=== PATIENT | female | born 1995 | race Caucasian/White ===

== ENCOUNTER 2016-07-15 13:00 | Outpatient (RCR) | payer OTHER | END 2016-07-21 | disposition home or self-care (01) | LOC: M OUTALCOH 13:00 | PROVIDERS: ATTEND Psychiatry & Neurology Psychiatry | DX: F12.20 Cannabis dependence, uncomplicated (principal); F17.200 Nicotine dependence, unspecified, uncomplicated ==

== ENCOUNTER 2016-08-17 13:00 | Outpatient (RCR) | payer OTHER | END 2016-08-18 | LOC: M OUTALCOH 13:00 | PROVIDERS: ATTEND Psychiatry & Neurology Psychiatry | DX: F12.20 Cannabis dependence, uncomplicated (principal); F17.200 Nicotine dependence, unspecified, uncomplicated ==

== ENCOUNTER 2016-09-22 13:06 | Emergency (ER) | payer MEDICAID, OTHER ==
[~2016-09-22] VITALS: Ht 162.6 cm; Wt 77.1 kg
[2016-09-22 13:10] VITALS: BP 148/97
[2016-09-22] MEDS ORDERED: PROZ40CA PO (13:23)
[2016-09-22] MEDS ORDERED: HYDRPOW28 PO (13:23)
== END 2016-09-22 14:43 | disposition home or self-care (01) ==
LOC: M ED 13:57
DX: F60.9 Personality disorder, unspecified (principal); F17.210 Nicotine dependence, cigarettes, uncomplicated; Z79.899 Other long term (current) drug therapy; F41.9 Anxiety disorder, unspecified; F32.9 Major depressive disorder, single episode, unspecified; F12.10 Cannabis abuse, uncomplicated

== ENCOUNTER 2018-03-15 13:34 | Emergency (ER) | payer OTHER ==
[2018-03-15 14:20] LABS: HEMATOCRIT 44.3 % (36.0-47.0); HEMOGLOBIN 14.7 g/dl (12.0-15.5); MEAN CORPUSCULAR HGB CONC 33.2 g/dl (32.0-36.5); MEAN CORPUSCULAR VOLUME 81.3 fl (80.0-96.0); PLATELET COUNT, AUTOMATED 411 10^3/uL (150-450); RED BLOOD COUNT 5.45 10^6/uL (4.00-5.40); RED CELL DISTRIBUTION WIDTH 13.7 % (11.5-14.5); WHITE BLOOD COUNT 9.2 10^3/uL (4.0-10.0)
[2018-03-15 14:40] LABS: CONTROL LINE HCG INT CTR LINE PRESENT; HCG, SERUM QUALITATIVE NEGATIVE (NEGATIVE)
[2018-03-15 14:41] LABS: AMPHETAMINES LEVEL URINE NEGATIVE (NEGATIVE); BARBITURATES URINE NEGATIVE (NEGATIVE); BENZODIAZEPINES URINE NEGATIVE (NEGATIVE); CANNABINOIDS URINE POSITIVE (NEGATIVE); COCAINE METABOLITE URINE NEGATIVE (NEGATIVE); METHADONE URINE NEGATIVE (NEGATIVE); OPIATES URINE NEGATIVE (NEGATIVE); PHENCYCLIDINE URINE NEGATIVE (NEGATIVE)
[2018-03-15 15:11] LABS: ACETAMINOPHEN LEVEL < 2.0 UG/ML (10.0-30.0); ALBUMIN 4.4 GM/DL (3.2-5.2); ALBUMIN/GLOBULIN RATIO 1.26 (1.00-1.93); ALKALINE PHOSPHATASE 103 U/L (45-117); ALT/SGPT 45 U/L (12-78); ANION GAP 12 MEQ/L (8-16); AST/SGOT 26 U/L (7-37); BILIRUBIN,DIRECT 0.1 MG/DL (0.0-0.2); BILIRUBIN,TOTAL 0.2 MG/DL (0.2-1.0); BLOOD UREA NITROGEN 9 MG/DL (7-18); CALCIUM LEVEL 9.4 MG/DL (8.5-10.1); CARBON DIOXIDE LEVEL 23 MEQ/L (21-32); CHLORIDE LEVEL 107 MEQ/L (98-107); CREATININE FOR GFR 0.63 MG/DL (0.55-1.30); ETHYL ALCOHOL (ETHANOL) < 0.003 % (0.000-0.010); GLOMERULAR FILTRATION RATE > 60.0 (>60); GLUCOSE, FASTING 78 MG/DL (70-100); POTASSIUM SERUM 4.3 MEQ/L (3.5-5.1); SALICYLATE LEVEL 6.1 MG/DL (5.0-30.0); SODIUM LEVEL 142 MEQ/L (136-145); TOTAL PROTEIN 7.9 GM/DL (6.4-8.2)
== END 2018-03-15 20:06 | disposition home or self-care (01) ==
LOC: M ED 13:34
DX: Z60.9 Problem related to social environment, unspecified (principal); Z72.0 Tobacco use; F12.10 Cannabis abuse, uncomplicated; Z79.899 Other long term (current) drug therapy
CPT/HCPCS: 80320

== ENCOUNTER → 2018-04-04 | Outpatient (CLI) | payer MEDICAID | LOC: M OUTALCOH 08:26 | DX: F12.10 Cannabis abuse, uncomplicated (principal); F17.200 Nicotine dependence, unspecified, uncomplicated ==

== ENCOUNTER 2018-04-13 09:00 | Outpatient (RCR) | payer MEDICAID | END 2018-04-20 | LOC: M OUTALCOH 04-18 14:00 | DX: F12.20 Cannabis dependence, uncomplicated (principal); F17.200 Nicotine dependence, unspecified, uncomplicated ==

== ENCOUNTER 2018-04-25 14:01 | Outpatient (RCR) | payer MEDICAID | END 2018-05-20 | LOC: M OUTALCOH 05-02 14:00 | DX: F12.20 Cannabis dependence, uncomplicated (principal); F17.200 Nicotine dependence, unspecified, uncomplicated ==

== ENCOUNTER 2018-06-15 07:50 | Outpatient (RCR) | payer MEDICAID ==
[~2018-06-15 07:50] MED LIST: GABA-843 PO; GABA-845 PO; HYDR50TA70 PO; HYDRPOW28 PO; PRIS1TAB PO; PRIS50TA PO; PROZ40CA PO
== END 2018-06-20 ==
LOC: M OUTALCOH 07:50
PROVIDERS: ATTEND Psychiatry & Neurology Psychiatry
DX: F17.200 Nicotine dependence, unspecified, uncomplicated (principal); F12.20 Cannabis dependence, uncomplicated

== ENCOUNTER → 2018-07-21 | Outpatient (RCR) | payer MEDICAID | LOC: M OUTALCOH 06-29 10:05 | PROVIDERS: ATTEND Psychiatry & Neurology Psychiatry | DX: F12.20 Cannabis dependence, uncomplicated (principal) ==

== ENCOUNTER → 2018-08-18 | Outpatient (RCR) | payer MEDICAID | LOC: M OUTALCOH 07-28 09:06 | PROVIDERS: ATTEND Psychiatry & Neurology Psychiatry | DX: F12.20 Cannabis dependence, uncomplicated (principal) ==

== ENCOUNTER 2018-09-16 09:00 | Outpatient (RCR) | payer MEDICAID | END 2018-09-18 | LOC: M OUTALCOH 09:00 | PROVIDERS: ATTEND Psychiatry & Neurology Psychiatry | DX: F12.20 Cannabis dependence, uncomplicated (principal) ==

== ENCOUNTER → 2018-09-29 | Outpatient (REF) | payer MEDICAID | LOC: M LAB REF 12:57 | PROVIDERS: ATTEND Advanced Practice Midwife | DX: Z12.4 Encounter for screening for malignant neoplasm of cervix (principal); N87.0 Mild cervical dysplasia ==

== ENCOUNTER 2018-10-17 10:20 | Outpatient (RCR) | payer MEDICAID | END 2018-10-18 | LOC: M OUTALCOH 10:20 | PROVIDERS: ATTEND Psychiatry & Neurology Psychiatry | DX: F12.20 Cannabis dependence, uncomplicated (principal); F17.200 Nicotine dependence, unspecified, uncomplicated ==

== ENCOUNTER → 2018-10-27 | Outpatient (CLI) | payer MEDICAID | LOC: M SMT 11:39 | PROVIDERS: ATTEND Advanced Practice Midwife | DX: Z34.82 Encounter for supervision of other normal pregnancy, second trimester (principal); Z3A.00 Weeks of gestation of pregnancy not specified ==

== ENCOUNTER 2018-11-07 16:00 | Outpatient (RCR) | payer MEDICAID | END 2018-11-18 | LOC: M OUTALCOH 16:00 | PROVIDERS: ATTEND Psychiatry & Neurology Psychiatry | DX: F12.20 Cannabis dependence, uncomplicated (principal); F17.200 Nicotine dependence, unspecified, uncomplicated ==

== ENCOUNTER → 2018-11-24 | Outpatient (CLI) | payer MEDICAID ==
[2018-11-24 14:31] LABS: FREE T4 0.82 NG/DL (0.76-1.46); THYROID STIMULATING HORMONE 4.25 uIU/ML (0.358-3.740)
== END ==
LOC: M SMT 11:03
PROVIDERS: ATTEND Advanced Practice Midwife
DX: O99.282 Endocrine, nutritional and metabolic diseases complicating pregnancy, second trimester (principal); O99.342 Other mental disorders complicating pregnancy, second trimester; Z3A.00 Weeks of gestation of pregnancy not specified

== ENCOUNTER → 2018-12-02 | Outpatient (CLI) | payer OTHER ==
--- NOTE | 2018-12-02 14:02 | REP ---
OBSTETRIC SONOGRAPHY: HISTORY: Supervision of for anatomy. FINDINGS: Scanning through the gravid uterus demonstrates a viable single intrauterine gestation in a breech lie. motion is observed and heart rate is recorded at 143 beats per minute. An anterior grade 0 placenta is seen without evidence of previa or abruption. Amniotic fluid is subjectively normal. Closed cervical length is 4.4 cm, measured transabdominally. No extrauterine abnormalities observed. No anomaly is seen. spine and lower extremities are less than optimally seen due to position. Similarly, suboptimal visualization of the face was achieved today. The following additional anatomic structures are identified and felt to be unremarkable: cranium, choroid plexus, cavum, cerebellum and posterior fossa, lungs, four-chamber heart with left and right ventricular outflow tract views, diaphragm, left-sided stomach, abdominal wall cord insertion, three-vessel umbilical cord, kidneys and bladder, upper extremities. Biometry Chart: BPD 3.9 cm = 17 weeks 6 days HC 15.1 cm = 18 weeks 1 day AC 12.5 cm = 18 weeks 1 day FL 2.7 cm = 18 weeks 0 days HL 2.5 cm = 17 weeks 6 days HC/AC ratio normal 1.21. Cephalic index normal 0.70. Estimated weight 224 grams, 0 pounds 7 ounces, 39th percentile for 18 weeks 2 days. IMPRESSION: Viable single intrauterine gestation 18 weeks 0 days by today's composite sonographic criteria. ANAID by today's sonography May 05, 2019. face, spine, and lower extremities are less than optimally seen today. Electronically Signed by Torres Stein MD 12/02/2018 03:12 P
== END ==
LOC: M RAD 11:33
PROVIDERS: ATTEND Advanced Practice Midwife
DX: O99.342 Other mental disorders complicating pregnancy, second trimester (principal); Z3A.18 18 weeks gestation of pregnancy

== ENCOUNTER 2018-12-12 16:00 | Outpatient (RCR) | payer MEDICAID | END 2018-12-18 | LOC: M OUTALCOH 16:00 | PROVIDERS: ATTEND Psychiatry & Neurology Psychiatry | DX: F12.20 Cannabis dependence, uncomplicated (principal); F17.200 Nicotine dependence, unspecified, uncomplicated ==

== ENCOUNTER → 2019-01-05 | Outpatient (CLI) | payer OTHER ==
--- NOTE | 2019-01-05 19:03 | REP ---
Obstetric sonography: History: Supervision of , followup anatomy. Lower extremities, face, and spine. Findings: Scanning through the gravid uterus demonstrates a viable single intrauterine gestation in a breech lie. motion is observed and heart rate is recorded at 160 beats per minute. An anterior grade 0 placenta is seen without evidence of previa or abruption. Amniotic fluid is subjectively normal. Closed cervical length viewed transabdominally is normal at 5.5 cm. No extrauterine abnormalities observed. There has been appropriate interval growth. No anomaly is seen. The following anatomic structures are identified and felt to be sonographically unremarkable today: cranium, choroid plexus, cavum, cerebellum and posterior fossa, face and profile, lungs, four-chamber heart with left and right ventricular outflow tract views, diaphragm, left-sided stomach, abdominal wall cord insertion, three-vessel umbilical cord, kidneys and bladder, upper and lower extremities. spine is still less than optimally visualized due to position. Biometry chart: BPD 5.4 cm = 22 weeks 3 days HC 21.0 cm = 23 weeks 0 days AC 20.7 cm = 25 weeks 2 days FL 4.0 cm = 23 weeks 0 days HL 4.0 cm = 24 weeks 3 days HC/AC ratio normal 1.01. Cephalic index normal 0.70. Estimated weight 662 grams, 1 pound 7 ounces, 77th percentile for 23 weeks 1 day. Impression: Viable single intrauterine gestation at 23 weeks 5 days by today's composite criteria. There has been appropriate interval growth. Expected gestational age estimate based on prior sonography is 22 weeks 6 days. ANAID by prior sonography May 05, 2019. anatomic survey is felt to be complete except for spine. Electronically Signed by Torres Stein MD 01/05/2019 07:28 P
== END ==
LOC: M RAD 17:22
PROVIDERS: ATTEND Specialist
DX: O99.282 Endocrine, nutritional and metabolic diseases complicating pregnancy, second trimester (principal)

== ENCOUNTER 2019-01-16 13:00 | Outpatient (RCR) | payer MEDICAID | END 2019-01-18 | LOC: M OUTALCOH 13:00 | PROVIDERS: ATTEND Psychiatry & Neurology Psychiatry | DX: F12.20 Cannabis dependence, uncomplicated (principal); F17.200 Nicotine dependence, unspecified, uncomplicated ==

== ENCOUNTER → 2019-02-02 | Outpatient (CLI) | payer OTHER ==
--- NOTE | 2019-02-02 18:43 | REP ---
HISTORY: Followup anatomy. COMPARISON: Prior examination failed to optimally identify the spine. Today's examination was performed specifically to identify that structure with all other structures being optimally seen on prior examinations of 12/02/2018 and 01/05/2019. Multiple ultrasonographic images of the gravid uterus show a single living intrauterine gestation in the yudith breech presentation. Doppler interrogation of the heart shows a heart rate of 149 beats per minute. The placenta is anterior and not low lying. The subjective amniotic fluid volume is within normal limits. The cervix measures 5 cm in length and is closed. Evaluation of the maternal adnexal spaces showed no abnormalities. Once again, the spine was seen suboptimally due to the lie. Doppler interrogation of the umbilical artery shows an AB ratio of 2.52. This is just below the lower limit of normal at 2.60. The calculated amniotic fluid index is 14.9 with an expected range 9.5 to 22.6. BPD 6.9 cm = 27 weeks 5 days HC 26.9 cm = 29 weeks 3 days AC 25.3 cm = 30 weeks 3 days FL 4.9 cm = 26 weeks 4 days The estimated weight is 1071 grams which is at the 95th percentile for a 27 week 1 day gestational age. IMPRESSION: Single living intrauterine gestation as described above with an estimated gestational age of 28 weeks 3 days via composite criteria and an estimated date of delivery of 04/24/2019 by today's exam. The spine was still suboptimally visualized. Followup is recommended. Electronically Signed by Payam Beck DO 02/02/2019 07:37 P
== END ==
LOC: M RAD 16:11
PROVIDERS: ATTEND Specialist
DX: Z34.82 Encounter for supervision of other normal pregnancy, second trimester (principal); Z3A.28 28 weeks gestation of pregnancy

== ENCOUNTER 2019-02-08 08:53 | Outpatient (RCR) | payer MEDICAID | END 2019-02-18 | LOC: M OUTALCOH 08:53 | PROVIDERS: ATTEND Psychiatry & Neurology Psychiatry | DX: F12.20 Cannabis dependence, uncomplicated (principal); F17.200 Nicotine dependence, unspecified, uncomplicated ==

== ENCOUNTER 2019-02-21 14:09 | Outpatient (RCR) | payer MEDICAID | END 2019-03-20 | LOC: M OUTALCOH 14:09 | PROVIDERS: ATTEND Psychiatry & Neurology Psychiatry | DX: F12.20 Cannabis dependence, uncomplicated (principal); F17.200 Nicotine dependence, unspecified, uncomplicated ==

== ENCOUNTER → 2019-03-01 | Outpatient (CLI) | payer OTHER ==
--- NOTE | 2019-03-02 07:15 | REP ---
OB ULTRASOUND: Real-time sonographic evaluation of the gravid uterus is performed. There is a single living intrauterine gestation. The estimated gestational age is 31 weeks. EDC 05/03/2019. Today's measurements indicate appropriate growth. BPD 77 mm 31 weeks 0 days, 50th percentile. HC 295 mm 32 weeks 4 days, 73rd percentile. AC 269 mm 31 weeks 0 days, 49th percentile. Femur length 61 mm 31 weeks 4 days, 50th percentile. HC/AC ratio 1.10 within normal range. Estimated weight 1738 grams, 49th percentile. Cervix is closed and measures 3.9 cm in length. heart rate 133 beats per minute. Amniotic fluid within normal limits. JANI 17.8 with a normal range of 8.8-23.8. SD ratio 2.53 with a normal range of 2.5-3.5. RI is 0.60 within normal range of 0.59-0.75. Today's measurements indicate appropriate growth. SEEN/GROSSLY UNREMARKABLE Lateral ventricles No Posterior fossa No Upper lip Yes Four-chamber heart Yes LVOT Yes RVOT Yes Stomach Yes Cord insertion No Three vessel cord Yes Kidneys Yes Bladder Yes Spine No position: Vertex. Placenta: Anterior and grade 1 with no previa or abruption. Electronically Signed by Sai Saleem MD 03/02/2019 11:37 A
== END ==
LOC: M RAD 15:07
PROVIDERS: ATTEND Specialist
DX: Z34.83 Encounter for supervision of other normal pregnancy, third trimester (principal)

== ENCOUNTER 2019-03-28 14:00 | Outpatient (RCR) | payer MEDICAID ==
[2019-04-12] MEDS ORDERED: PREN29TA4 PO (11:04)
== END 2019-04-20 ==
LOC: M OUTALCOH 14:00
PROVIDERS: ATTEND Psychiatry & Neurology Psychiatry
DX: F12.20 Cannabis dependence, uncomplicated (principal); F17.200 Nicotine dependence, unspecified, uncomplicated

== ENCOUNTER → 2019-04-10 | Outpatient (REF) | payer MEDICAID ==
[~2019-04-10] MED LIST changes: +PREN29TA4 PO
== END ==
LOC: M LAB REF 13:40
PROVIDERS: ATTEND Advanced Practice Midwife
DX: Z34.83 Encounter for supervision of other normal pregnancy, third trimester (principal)

== ENCOUNTER 2019-04-12 10:16 | Inpatient (IN) | payer MEDICAID ==
[2019-04-12] VITALS (11 sets, daily range): BP systolic 105–138; BP diastolic 53–77
[~2019-04-12] VITALS: Ht 162.6 cm; Wt 109.4 kg
[~2019-04-12 10:16] MED LIST changes: -PREN29TA4 PO
[2019-04-12] MEDS ORDERED: PREN29TA4 PO (11:04)
[2019-04-12 11:09] LABS: HEMATOCRIT 34.3 % (36.0-47.0); HEMOGLOBIN 11.3 g/dl (12.0-15.5); MEAN CORPUSCULAR HEMOGLOBIN 27.8 pg (27.0-33.0); MEAN CORPUSCULAR HGB CONC 32.9 g/dl (32.0-36.5); MEAN CORPUSCULAR VOLUME 84.5 fl (80.0-96.0); PLATELET COUNT, AUTOMATED 384 10^3/uL (150-450); RED BLOOD COUNT 4.06 10^6/uL (4.00-5.40)
[2019-04-12 11:34] LABS: ALT/SGPT 23 U/L (12-78); BILIRUBIN,TOTAL 0.1 MG/DL (0.2-1.0); CREATININE FOR GFR 0.54 MG/DL (0.55-1.30); GLOMERULAR FILTRATION RATE > 60.0 (>60); LDH LACTATE DEHYDROGENASE 143 U/L (84-246); URIC ACID 4.4 MG/DL (2.6-6.0)
[2019-04-12] MEDS: miSOPROStol 50 MCG 1/2 TAB (S0191) PO SCH ×3 (11:34→19:43)
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
[2019-04-12] MEDS ORDERED: LR 1,000 ML IV SCH (20:48)
[2019-04-12] MEDS ORDERED: OXYTOCIN DRIP 30 UNITS in IV 1 EA IV SCH (21:00)
[2019-04-13] VITALS (22 sets, daily range): BP systolic 102–143; BP diastolic 55–82
[2019-04-13] MEDS ORDERED: ACETAMINOPHEN TAB 650MG DOSE (2X325MG) PO ONE (01:30)
[2019-04-13] MEDS ORDERED: FENTANYL 2MCG/ML ROPIVACAINE 0.2% IN 0.9% NACL 100ML IVBAG As Ordered ONE (01:34)
[2019-04-13] MEDS ORDERED: ePHEDrine SULFATE 25 MG/5 ML(5MG/ML) SYRINGE IV PRN (03:15)
[2019-04-13] MEDS ORDERED: LACTATED RINGER'S 1000 ML IV PRN (03:15)
[2019-04-13] MEDS ORDERED: EPIDURAL/PCA KEYS XX PRN (03:15)
[2019-04-13] MEDS ORDERED: NALOXONE INJ 0.4 MG/1 ML VIAL (J2310) IV PRN (03:15)
[2019-04-13] MEDS ORDERED: diphenhydrAMINE INJ 50MG/ML VIAL (J1200) IV PRN (03:15)
[2019-04-13] MEDS ORDERED: EPIDURAL COMMENT XX SCH (03:15)
[2019-04-13] MEDS ORDERED: ONDANSETRON 4MG/2ML VIAL (J2405) IV PRN ×2 (03:15→14:00)
[2019-04-13] MEDS ORDERED: REFRIGERATOR IV KEYS XX PRN (03:15)
[2019-04-13] MEDS ORDERED: FENTANYL/ROPIVACAINE/NACL BAG 100 ML EPIDURAL SCH (03:15)
[2019-04-13 13:35] LABS: CORD GAS ABE A -4.1; CORD GAS HCO3 A 26.2 MEQ/L; CORD GAS O2 SAT A 27.9 %; CORD GAS PCO2 A 67.8 mmHg; CORD GAS PH A 7.205 UNITS; CORD GAS PO2 A 16.1 mmHg; CORD GAS SBC A 19.1 MEQ/L; CORD GAS TCO2 A 28.3 MEQ/L
[2019-04-13 13:36] LABS: CORD GAS ABE V -4.2; CORD GAS HCO3 V 23.1 MEQ/L; CORD GAS O2 SAT V 53.1 %; CORD GAS PCO2 V 49.6 mmHg; CORD GAS PH V 7.286 UNITS; CORD GAS PO2 V 23.9 mmHg; CORD GAS SBC V 19.7 MEQ/L; CORD GAS TCO2 V 24.6 MEQ/L
[2019-04-13] MEDS ORDERED: DOCUSATE SODIUM 100 MG CAP PO PRN (14:00)
[2019-04-13] MEDS ORDERED: DIBUCAINE 1% OINTMENT 30GM TOP PRN (14:00)
[2019-04-13] MEDS ORDERED: RHOGAM 300 MCG (1500 IU) INJ (J2790) IM SCH (14:00)
[2019-04-13] MEDS ORDERED: METHYLERGONOVINE MALEATE 0.2 MG TAB PO PRN (14:00)
[2019-04-13] MEDS ORDERED: MEASLES,MUMPS,RUBELLA VACCINE INJ (MMR-II) (90707) SC SCH (14:00)
[2019-04-13] MEDS ORDERED: OXYTOCIN DRIP 30 UNITS in IV 1 EA IV ONE (14:00)
[2019-04-13] MEDS ORDERED: ACETAMINOPHEN TAB 650MG DOSE (2X325MG) PO PRN (14:00)
[2019-04-13] MEDS ORDERED: IBUPROFEN 600 MG TAB PO PRN (14:00)
--- NOTE | 2019-04-13 14:00 | DN ---
DATE OF DELIVERY: 04/13/2019 PREDELIVERY DIAGNOSIS: 37 weeks, hypertension, labor induction. POSTDELIVERY DIAGNOSIS: Delivered. PROCEDURE: Spontaneous vaginal delivery. MANAGER BAKERY: Aravind Baker MD ANESTHESIA: Epidural. ESTIMATED BLOOD LOSS: 300 mL. FINDINGS: 7 pound 15 ounce female , score 7 and 9. DELIVERY SUMMARY: After approximately 15 minutes second stage, the patient spontaneously delivered a 7 pound 15 ounce female , score 7 and 9, under epidural anesthesia. Nuchal cord times one was reduced manually. The shoulders delivered with ease. The infant was handed to the mother. The cord was doubly clamped and cut. The placenta delivered spontaneously and appeared to be intact. The patient received intravenous (IV) pitocin immediately after delivery of the placenta. There were no vaginal lacerations present. Sponge counts were correct.
[2019-04-13] MEDS: IBUPROFEN 800 MG TAB PO PRN (14:31)
[2019-04-13] MEDS: PRENATAL VITAMINS CHEWABLE TABLET PO SCH (15:00)
[2019-04-13] MEDS: ACETAMINOPHEN 500 MG TAB PO PRN (20:02)
[2019-04-14] MEDS: IBUPROFEN 800 MG TAB PO PRN ×3 (01:59→17:44)
[2019-04-14] MEDS: ACETAMINOPHEN 500 MG TAB PO PRN (05:34)
[2019-04-14 06:00] VITALS: BP 129/70
[2019-04-14] MEDS: PRENATAL VITAMINS CHEWABLE TABLET PO SCH (07:51)
[2019-04-14 18:00] VITALS: BP 141/91
[2019-04-15] MEDS: IBUPROFEN 800 MG TAB PO PRN (02:51)
[2019-04-15 05:46] VITALS: BP 137/84
[2019-04-15] MEDS: PRENATAL VITAMINS CHEWABLE TABLET PO SCH (08:18)
[2019-04-15] MEDS: ACETAMINOPHEN 500 MG TAB PO PRN (09:38)
== END 2019-04-15 10:55 | disposition home or self-care (01) | DRG 560 ==
LOC: M LDI 10:16 → M OBS 04-13 15:22
PROVIDERS: ADMIT Advanced Practice Midwife; ATTEND Specialist
PROC: 3E0P7GC Introduction of Other Therapeutic Substance into Female Reproductive, Via Natural or Artificial Opening (ICD-10-PCS; 2019-04-12)
PROC: 10E0XZZ Delivery of Products of Conception, External Approach (ICD-10-PCS; principal; 2019-04-13)
DX: O13.4 Gestational [pregnancy-induced] hypertension without significant proteinuria, complicating childbirth (principal); O99.344 Other mental disorders complicating childbirth; F32.9 Major depressive disorder, single episode, unspecified; Z3A.37 37 weeks gestation of pregnancy; F41.9 Anxiety disorder, unspecified; F43.10 Post-traumatic stress disorder, unspecified; O99.284 Endocrine, nutritional and metabolic diseases complicating childbirth; E03.9 Hypothyroidism, unspecified; O69.81X0 Labor and delivery complicated by cord around neck, without compression, not applicable or unspecified; Z37.0 Single live birth; Z91.419 Personal history of unspecified adult abuse; Z86.14 Personal history of Methicillin resistant Staphylococcus aureus infection

== ENCOUNTER → 2019-08-28 | Outpatient (REF) | payer MEDICAID, OTHER ==
[~2019-08-28] MED LIST changes: +PREN29TA4 PO
[2019-08-28 13:53] LABS: CORTISOL AM 6.4 UG/DL (4.3-22.4); FREE T4 1.14 NG/DL (0.76-1.46); THYROID STIMULATING HORMONE 2.23 uIU/ML (0.358-3.740)
== END ==
LOC: M LABDRAW1 11:03
PROVIDERS: ATTEND Internal Medicine Endocrinology, Diabetes & Metabolism
DX: R94.6 Abnormal results of thyroid function studies (principal)

== ENCOUNTER → 2020-04-08 | Outpatient (CLI) | payer MEDICAID | LOC: M OUTALCOH 07:54 | PROVIDERS: ATTEND Psychiatry & Neurology Addiction Medicine | DX: F15.20 Other stimulant dependence, uncomplicated (principal); F12.20 Cannabis dependence, uncomplicated ==

== ENCOUNTER → 2020-06-27 | Outpatient (CLI) | payer OTHER ==
[~2020-06-27] MED LIST changes: +GABA-282 PO; -GABA-843 PO
--- NOTE | 2020-06-27 09:30 | REP ---
INDICATION: STAT - DATING Z32.01. COMPARISON: None. TECHNIQUE: Transabdominal scanning. FINDINGS: Scanning through the gravid uterus demonstrates a single living intrauterine gestation in a free-floating lie. The crown-rump length of the embryonic pole is 31 mm. This corresponds with a gestational age estimate of 10 weeks 0 days. heart rate is recorded at 158 beats per minute. Closed cervical length is 3.2 cm view transabdominally. No extra uterine abnormality is observed. IMPRESSION: Viable single intrauterine gestation at 10 weeks 0 days by crown-rump length. ANAID by today's sonography January 23, 2021. No complication is identified. <Electronically signed by Jp Stein > 06/27/20 [id number]
== END ==
LOC: M WHC 09:02
PROVIDERS: ATTEND Physician Assistant
DX: Z32.01 Encounter for pregnancy test, result positive (principal); Z3A.10 10 weeks gestation of pregnancy

== ENCOUNTER → 2020-10-24 | Outpatient (CLI) | payer MEDICAID | LOC: M OUTALCOH 07:52 | PROVIDERS: ATTEND Psychiatry & Neurology Psychiatry | DX: F15.20 Other stimulant dependence, uncomplicated (principal) ==

== ENCOUNTER 2020-11-14 09:00 | Outpatient (RCR) | payer MEDICAID ==
[~2020-11-14 09:00] MED LIST changes: +GABA-283 PO; -GABA-845 PO
== END 2020-11-18 ==
LOC: M OUTALCOH 09:00
PROVIDERS: ATTEND Psychiatry & Neurology Psychiatry
DX: F12.20 Cannabis dependence, uncomplicated (principal); F17.200 Nicotine dependence, unspecified, uncomplicated; F15.20 Other stimulant dependence, uncomplicated

== ENCOUNTER 2022-11-13 20:30 | Day surgery (SDC) | payer MEDICAID ==
[~2022-11-13] VITALS: Ht 162.6 cm; Wt 102.4 kg
[2022-11-13 19:50] VITALS: BP 145/95; TEMP 98.4; O2SAT 99
[~2022-11-13 20:30] MED LIST changes: +ACETAMINOPHEN TAB 650MG DOSE (2X325MG) PO PRN; +KETOROLAC 30 MG/ML 1ML VIAL IV PRN; +NS 1,000 ML IV SCH; +ONDANSETRON 4MG 2ML VIAL IV PRN
[2022-11-13] MEDS: PIPERACILLIN/TAZOBACTAM SOD 3.375 GM in D5W MINI-BAG PLUS 50 ML IV SCH (21:00)
[2022-11-13] MEDS ORDERED: ZOSYN 3.375GM VIAL As Ordered ONE (21:08)
[2022-11-13] MEDS ORDERED: METH20TA31 PO (21:08)
[2022-11-13] MEDS ORDERED: GABA-282 PO (21:08)
[2022-11-13] MEDS ORDERED: VRAY6CAP PO (21:08)
[2022-11-13] MEDS ORDERED: HOME MED LIST COMPLETE! XX SCH (21:15)
[2022-11-13] MEDS ORDERED: SUGAMMADEX SODIUM 500 MG/5 ML VIAL (BRIDION) As Ordered ONE (21:41)
[2022-11-13] MEDS ORDERED: KETOROLAC 60MG 2ML VIAL As Ordered ONE (21:41)
[2022-11-13] MEDS ORDERED: fentaNYL 100 MCG/2 ML INJECTION As Ordered ONE ×2 (21:51→22:02)
[2022-11-13] MEDS ORDERED: LIDOCAINE 2% 100MG/5ML SDV (FOR ANES.) As Ordered ONE (21:51)
[2022-11-13] MEDS ORDERED: ONDANSETRON 4MG 2ML VIAL As Ordered ONE (21:51)
[2022-11-13] MEDS ORDERED: ROCURONIUM BROMIDE 50MG/5ML VIAL As Ordered ONE (21:51)
[2022-11-13] MEDS ORDERED: METOCLOPRAMIDE INJ 10MG/2ML VIAL As Ordered ONE (21:51)
[2022-11-13] MEDS ORDERED: MIDAZOLAM INJ 2MG/2ML VIAL As Ordered ONE (21:51)
[2022-11-13] MEDS ORDERED: propofoL 200 MG/20 ML VIAL As Ordered ONE (21:51)
[2022-11-13] MEDS ORDERED: HYDROMORPHONE HCL 0.5 MG/ 0.5 ML SYRINGE IV PRN (22:00)
[2022-11-13] MEDS ORDERED: LR 1,000 ML IV SCH (22:00)
[2022-11-13] MEDS ORDERED: oxyCODONE 5MG TAB PO PRN (22:00)
[2022-11-13] MEDS ORDERED: ONDANSETRON 4MG 2ML VIAL IV PRN (22:00)
[2022-11-13] MEDS: fentaNYL 100 MCG/2 ML INJECTION IV PRN ×4 (22:08→22:31)
[2022-11-13 22:50] VITALS: BP 130/89; TEMP 97.9; O2SAT 95
[2022-11-13] MEDS: SENOKOT S TAB PO SCH (22:59)
[2022-11-13 23:30] VITALS: BP 113/66; TEMP 97.5; O2SAT 96
[2022-11-14] VITALS: BP 131/90; TEMP 97.7; O2SAT 97
[2022-11-14] MEDS: NORCO, ANEXSIA 5/325MG TABLET (HYDROcodone/ACETAMINOPHEN) PO PRN ×2 (00:05→08:01)
[2022-11-14 01:00] VITALS: BP 143/85; TEMP 97.3; O2SAT 98
[2022-11-14] MEDS ORDERED: QUET200T2 PO (01:20)
[2022-11-14 02:00] VITALS: BP 142/87; TEMP 97; O2SAT 95
[2022-11-14] MEDS ORDERED: QUEtiapine FUMARATE 100 MG TAB PO ONE (02:00)
[2022-11-14] MEDS: PIPERACILLIN/TAZOBACTAM SOD 3.375 GM in D5W MINI-BAG PLUS 50 ML IV SCH ×2 (02:52→08:01)
[2022-11-14 03:00] VITALS: BP 138/87; TEMP 98.1; O2SAT 97
[2022-11-14 04:00] VITALS: BP 115/63; TEMP 98.2; O2SAT 95
[2022-11-14] MEDS ORDERED: KETOROLAC 30 MG/ML 1ML VIAL IV PRN (04:00)
[2022-11-14 06:05] LABS: HEMATOCRIT 39.4 % (36.0-47.0); HEMOGLOBIN 12.7 g/dl (12.0-15.5); MEAN CORPUSCULAR HEMOGLOBIN 26.6 pg (27.0-33.0); MEAN CORPUSCULAR HGB CONC 32.2 g/dl (32.0-36.5); MEAN CORPUSCULAR VOLUME 82.4 fl (80.0-96.0); PLATELET COUNT, AUTOMATED 374 10^3/uL (150-450); RED BLOOD COUNT 4.78 10^6/uL (4.00-5.40); WHITE BLOOD COUNT 16.8 10^3/uL (4.0-10.0)
[2022-11-14] MEDS: SENOKOT S TAB PO SCH (08:01)
[2022-11-14] MEDS ORDERED: AMOX875T PO (09:59)
[2022-11-14] MEDS ORDERED: AMOX875T2 PO (11:05)
== END 2022-11-14 11:03 | disposition home or self-care (01) ==
LOC: M SDC 20:30 → UNDOADMIN 20:30 → M MSPAV 20:30 → M SDC 22:35 → UNDODISIN 11-14 11:05
PROVIDERS: ATTEND Surgery
DX: K35.890 Other acute appendicitis without perforation or gangrene (principal); F90.9 Attention-deficit hyperactivity disorder, unspecified type; Z79.899 Other long term (current) drug therapy
CPT/HCPCS: 36415; 44970; 85027; 88304; 96365; 96366; 96375; J1100; J1885; J2250; J2405; J2543; J2765; J3010; S0020

== ENCOUNTER 2023-03-25 14:49 | Emergency (ER) | payer OTHER ==
[~2023-03-25] VITALS: Ht 162.6 cm; Wt 99.7 kg
[~2023-03-25 14:49] MED LIST changes: -ACETAMINOPHEN TAB 650MG DOSE (2X325MG) PO PRN; +AMOX875T PO; +AMOX875T2 PO; -GABA-283 PO; +GABA-284 PO; -KETOROLAC 30 MG/ML 1ML VIAL IV PRN; +METH20TA31 PO; -NS 1,000 ML IV SCH; -ONDANSETRON 4MG 2ML VIAL IV PRN; +PERCOCET PO; +QUET200T2 PO; +VRAY3CAP PO; +VRAY6CAP PO; +VYVA60CA PO
[2023-03-25 14:52] VITALS: BP 136/89; TEMP 99.7; O2SAT 98
[2023-03-25 16:29] LABS: BASO # 0.2 10^3/uL (0.0-0.2); BASO % 1.5 % (0.0-1.0); EOS # 0.3 10^3/uL (0.0-0.5); HEMATOCRIT 39.8 % (36.0-47.0); HEMOGLOBIN 13.1 g/dl (12.0-15.5); LYMPH # 4.2 10^3/uL (1.5-5.0); LYMPH % 38.4 % (24.0-44.0); MEAN CORPUSCULAR HEMOGLOBIN 27.6 pg (27.0-33.0); MEAN CORPUSCULAR HGB CONC 32.9 g/dl (32.0-36.5); MEAN CORPUSCULAR VOLUME 83.8 fl (80.0-96.0); MONO # 0.9 10^3/uL (0.0-0.8); MONO % 7.8 % (2.0-8.0); NEUTROPHILS # 5.4 10^3/uL (1.5-8.5); PLATELET COUNT, AUTOMATED 470 10^3/uL (150-450); RED BLOOD COUNT 4.75 10^6/uL (4.00-5.40)
[2023-03-25 16:39] LABS: LIPASE 43 U/L (12-53)
[2023-03-25 16:40] LABS: HCG, SERUM QUALITATIVE NEGATIVE (NEGATIVE)
[2023-03-25 16:41] LABS: ALKALINE PHOSPHATASE 86 U/L (46-116); ALT/SGPT 36 U/L (7.0-40); AST/SGOT 20 U/L (<34); BILIRUBIN,DIRECT < 0.1 MG/DL (<0.4); BILIRUBIN,TOTAL 0.2 MG/DL (0.3-1.2); BLOOD UREA NITROGEN 15 MG/DL (9-23); CALCIUM LEVEL 9.4 MG/DL (8.5-10.1); CARBON DIOXIDE LEVEL 28 MMOL/L (20-31); CHLORIDE LEVEL 109 MMOL/L (98-107); CREATININE FOR GFR 0.73 MG/DL (0.55-1.30); GLOMERULAR FILTRATION RATE > 60.0 (>60); GLUCOSE, FASTING 87 MG/DL (60-100); POTASSIUM SERUM 4.1 MMOL/L (3.5-5.1); SODIUM LEVEL 144 MMOL/L (136-145); TOTAL PROTEIN 7.3 G/DL (5.7-8.2)
== END 2023-03-25 18:31 | disposition left against medical advice (07) ==
LOC: M ED 14:49
DX: Z53.21 Procedure and treatment not carried out due to patient leaving prior to being seen by health care provider (principal)

== ENCOUNTER → 2025-06-18 | Outpatient (REF) | payer OTHER ==
[~2025-06-18] MED LIST changes: +GABA-1172 PO; -GABA-282 PO
== END ==
LOC: M PLALAB 09:16
PROVIDERS: ATTEND Specialist
DX: Z34.81 Encounter for supervision of other normal pregnancy, first trimester (principal); Z53.9 Procedure and treatment not carried out, unspecified reason